=== PATIENT | female | born 1975 | race Caucasian/White ===

== ENCOUNTER 2021-11-05 07:19 | Outpatient (CLI) | payer BC, SELFPAY ==
[2021-11-05 13:42] LABS: Albumin* 3.9 g/dL (3.3-5.0); Chloride* 102 mmol/L (96-114)
[2021-11-05 13:43] LABS: Potassium* 4.3 mmol/L (3.6-5.1); Sodium* 135 mmol/L (135-149)
[2021-11-05 13:45] LABS: Aspartate Amino Transferase* 23 U/L (12-35); Bilirubin Total* 0.3 mg/dL (0.1-1.5); Carbon Dioxide* 25 mmol/L (20-32); Cholesterol* 182 mg/dL (90-199); Creatinine* 1.2 mg/dL (0.5-1.5); Estimated Glomerular Filt Rate 56 ml/min
[2021-11-05 13:46] LABS: Alanine Aminotransferase* 16 U/L (4-35); Alkaline Phosphatase* 84 U/L (40-150); Blood Urea Nitrogen* 22 mg/dL (5-24); Calcium* 8.9 mg/dL (8.4-10.6); Glucose* 108 mg/dL (60-115); HDL Cholesterol* 43 mg/dL (>=50); LDL Cholesterol Calculated 112 mg/dL (<100); Triglycerides* 137 mg/dL (40-149)
== END 2021-11-05 07:20 | disposition home or self-care (01) ==
PROVIDERS: PCP Physician Assistant Medical; Visit Provider Physician Assistant Medical
DX: E66.01 Morbid (severe) obesity due to excess calories (principal); I10 Essential (primary) hypertension; Z68.44 Body mass index [BMI] 60.0-69.9, adult
CPT/HCPCS: 80053; 80061; 84443

== ENCOUNTER 2022-01-27 11:21 | Outpatient (CLI) | payer BC, SELFPAY ==
--- NOTE | 2022-01-27 11:30 | CRLHL7_ITS ---
For Patients: As a result of the Century Cures Act, medical imaging exams and procedure reports are released immediately into your electronic medical record. You may view this report before your referring provider. If you have questions, please contact your health care provider. BILATERAL SCREENING MAMMOGRAM WITH COMPUTER-AIDED DETECTION TECHNIQUE: CC and MLO views were obtained. These mammographic images have been obtained using full-field digital technique. These mammographic images were interpreted with the benefit of computer-aided detection. COMPARISON FILM: 09/10/20, 08/29/19, 08/11/18. FINDINGS: The breasts are almost entirely fatty IMPRESSION: There is no radiographic evidence for malignancy. ASSESSMENT: BI-RADS Category 2: Benign RECOMMENDATION: Routine screening mammogram in 1 year. A lay language report of this examination will be provided to the patient. Je Dejesus M.D. Diagnostic Radiologist [email or web address] JOSE ANTONIO/Dictated by: Je Dejesus MD @ 01/27/2022 1:41:00 PM (Electronically Signed)
== END 2022-01-27 11:22 | disposition home or self-care (01) ==
LOC: MAMMO 11:22
PROVIDERS: PCP Physician Assistant Medical; Visit Provider Physician Assistant Medical
DX: Z12.31 Encounter for screening mammogram for malignant neoplasm of breast (principal)
CPT/HCPCS: 77067

== ENCOUNTER 2022-09-14 10:17 | Outpatient (CLI) | payer BC, SELFPAY ==
--- NOTE | 2022-09-14 12:06 | W.ANESCHARGE ---
Anesthesia Charges Start Date/Time Anesthesia Start Date: 09/14/22 Anesthesia Start Time: 11:31 Stop Date/Time Anesthesia Stop Date: 09/14/22 Anesthesia Stop Time: 12:03
== END 2022-09-14 10:18 | disposition home or self-care (01) ==
LOC: OP CLINIC 10:17
PROVIDERS: PCP Physician Assistant Medical; Visit Provider Surgery
DX: Z12.11 Encounter for screening for malignant neoplasm of colon (principal); K57.30 Diverticulosis of large intestine without perforation or abscess without bleeding
CPT/HCPCS: 45378; 812; J2704; J3490

== ENCOUNTER 2023-04-18 09:40 | Outpatient (CLI) | payer BC, SELFPAY | END 2023-04-18 09:41 | disposition home or self-care (01) | LOC: NFLDREF 04-20 07:40 | PROVIDERS: PCP Physician Assistant Medical; Referring Provider Physician Assistant Medical; Visit Provider Physician Assistant Medical | DX: I10 Essential (primary) hypertension (principal); E66.01 Morbid (severe) obesity due to excess calories; Z68.44 Body mass index [BMI] 60.0-69.9, adult | CPT/HCPCS: 80053; 80061; 84443 ==

== ENCOUNTER 2023-08-15 09:39 | Outpatient (CLI) | payer BC, SELFPAY ==
--- NOTE | 2023-08-15 09:45 | CRLHL7_ITS ---
For Patients: As a result of the Cures Act, medical imaging exams and procedure reports are released immediately into your electronic medical record. You may view this report before your referring provider. If you have questions, please contact your health care provider. BILATERAL SCREENING MAMMOGRAM WITH COMPUTER-AIDED DETECTION AND TOMOSYNTHESIS TECHNIQUE: CC and MLO views were obtained. These mammographic images have been obtained using full-field digital technique. These mammographic images were interpreted with the benefit of computer-aided detection. Breast Tomosynthesis was used in this interpretation. COMPARISON FILM: 01/27/22, 09/10/20, 08/12/17 FINDINGS: The breasts are almost entirely fatty IMPRESSION: There is no radiographic evidence for malignancy. ASSESSMENT: BI-RADS Category 1: Negative RECOMMENDATION: Routine screening mammogram in 1 year. A lay language report of this examination will be provided to the patient. CHARLENE RAMÍREZ M.D. Diagnostic/Nuclear Medicine Radiologist [email or web address] THAO:[email or web address] Transcribed: 12:43 p.mSandy lopez/Dictated by: Charlene Ramírez MD @ 08/18/2023 8:34:00 AM (Electronically Signed)
== END 2023-08-15 09:40 | disposition home or self-care (01) ==
LOC: MAMMO 09:40
PROVIDERS: PCP Physician Assistant Medical; Visit Provider Physician Assistant Medical
DX: Z12.31 Encounter for screening mammogram for malignant neoplasm of breast (principal)
CPT/HCPCS: 77063; 77067

== ENCOUNTER 2024-04-23 09:09 | Outpatient (CLI) | payer BC, SELFPAY | END 2024-04-23 09:10 | disposition home or self-care (01) | LOC: NFLDREF 04-24 05:27 | PROVIDERS: PCP Physician Assistant Medical; Referring Provider Physician Assistant Medical; Visit Provider Physician Assistant Medical | DX: I10 Essential (primary) hypertension (principal); Z13.220 Encounter for screening for lipoid disorders; Z13.29 Encounter for screening for other suspected endocrine disorder | CPT/HCPCS: 80053; 80061; 84443 ==

== ENCOUNTER 2024-09-18 16:05 | Outpatient (CLI) | payer BC, SELFPAY ==
--- NOTE | 2024-09-18 16:20 | CRLHL7_ITS ---
For Patients: As a result of the Century Cures Act, medical imaging exams and procedure reports are released immediately into your electronic medical record. You may view this report before your referring provider. If you have questions, please contact your health care provider. INDICATION: BILATERAL SCREENING MAMMOGRAM, ASYMPTOMATIC 49 Y/O FEMALE COMPARISON: 08/15/2023, 01/27/22, 09/10/20 TECHNIQUE: Digital mammogram in CC and MLO projections including computer-aided detection (CAD) and tomosynthesis. BREAST COMPOSITION: There are scattered areas of fibroglandular density. FINDINGS: No suspicious findings. ASSESSMENT: BI-RADS 1 Negative RECOMMENDATION: Annual screening mammogram. A lay language report of this examination will be provided to the patient. Dictated by: Je Dejesus MD @ 09/19/2024 09:54:05 (Electronically Signed)
== END 2024-09-18 16:06 | disposition home or self-care (01) ==
LOC: MAMMO 16:05
PROVIDERS: PCP Physician Assistant Medical; Visit Provider Physician Assistant Medical
DX: Z12.31 Encounter for screening mammogram for malignant neoplasm of breast (principal)
CPT/HCPCS: 77063; 77067